=== PATIENT | female | born 1945 | race Two or more races ===

== ENCOUNTER 2017-12-22 13:44 | Inpatient (IN) | payer OTHER, MEDICAID ==
[~2017-12-22] VITALS: Ht 175.3 cm; Wt 57.0 kg
[2017-12-22 14:39] LABS: BASOPHIL % 0.3 % (0-2); PLATELET COUNT 248 x10^3mcL (130-400); RED CELL DISTRIBUTION WIDTH 13.9 % (11.5-14.5)
[2017-12-22] MEDS ORDERED: ZOCOR40 MG PO (14:54)
[2017-12-22] MEDS ORDERED: GABAPENTIN400 M1 PO (14:54)
[2017-12-22 14:56] LABS: ALKALINE PHOSPHATASE 110 U/L (46-116); ALT/SGPT 23 U/L (14-59); AST/SGOT 19 U/L (15-37); BILIRUBIN TOTAL 0.1 mg/dL (0.20-1.00); CALCIUM 8.6 mg/dL (8.5-10.1); CARBON DIOXIDE 21.8 mmol/L (21-32); CHLORIDE SERUM 97 mmol/L (98-107); CREATININE SERUM 1.2 mg/dL (0.6-1.0); SODIUM SERUM 128 mmol/L (136-145); TOTAL PROTEIN, SERUM 7.7 g/dL (6.4-8.2)
[2017-12-22] MEDS ORDERED: ALENDRONATE SOD70 M2 PO (14:56)
[2017-12-22] MEDS ORDERED: CENTANY AT2% TP (14:56)
[2017-12-22] MEDS ORDERED: LANTUS SOLOS100 U/M1 SQ (14:56)
[2017-12-22 14:59] LABS: ALBUMIN 2.2 g/dL (3.4-5.0)
[2017-12-22 15:00] LABS: GLUCOSE SERUM 541 mg/dL (74-106)
[2017-12-22 15:02] LABS: CK-MB 0.8 ng/mL (0-3.6)
[2017-12-22 15:55] VITALS: BP 136/64
[2017-12-22 16:01] LABS: CHOLESTEROL/HDL RATIO 2.6; PHOSPHOROUS 2.9 mg/dL (2.5-4.9)
[2017-12-22 16:11] LABS: FREE T4 0.99 ng/dL (0.76-1.46); T4(THYROXINE) 5.2 ug/dL (4.7-13.3)
[2017-12-22 16:30] LABS: T3 TOTAL 0.66 ng/mL
[2017-12-22 17:33] VITALS: BP 126/69
[2017-12-22 21:22] VITALS: BP 90/52
[2017-12-23 05:24] VITALS: BP 117/59
[2017-12-23 06:28] LABS: CALCIUM 8.3 mg/dL (8.5-10.1); CARBON DIOXIDE 22.7 mmol/L (21-32); CHLORIDE SERUM 108 mmol/L (98-107); CREATININE SERUM 0.7 mg/dL (0.6-1.0); POTASSIUM SERUM 4.5 mmol/L (3.5-5.1); SODIUM SERUM 140 mmol/L (136-145)
[2017-12-23 06:38] LABS: BASOPHIL % 0.4 % (0-2); PLATELET COUNT 238 x10^3mcL (130-400); RED CELL DISTRIBUTION WIDTH 13.9 % (11.5-14.5)
[2017-12-23 06:49] LABS: GLUCOSE SERUM 36 mg/dL (74-106)
[2017-12-23 08:16] LABS: microscopic required? NO
[2017-12-23 08:32] LABS: UA SPECIFIC GRAVITY 1.015 (1.005-1.035); urine erythrocyte NEGATIVE (NEGATIVE)
[2017-12-23 08:38] VITALS: BP 143/68
[2017-12-23 12:01] VITALS: BP 142/71
[2017-12-23 15:43] VITALS: BP 112/90
[2017-12-23 21:21] VITALS: BP 146/75
[2017-12-24 05:49] VITALS: BP 132/60
[2017-12-24 05:53] LABS: CALCIUM 8.6 mg/dL (8.5-10.1); CARBON DIOXIDE 21.4 mmol/L (21-32); CHLORIDE SERUM 101 mmol/L (98-107); CREATININE SERUM 0.8 mg/dL (0.6-1.0); GLUCOSE SERUM 401 mg/dL (74-106); MAGNESIUM 1.8 mg/dL (1.8-2.4); PHOSPHOROUS 3.8 mg/dL (2.5-4.9); POTASSIUM SERUM 5.2 mmol/L (3.5-5.1); SODIUM SERUM 131 mmol/L (136-145)
[2017-12-24 06:51] LABS: BASOPHIL % 0.3 % (0-2); PLATELET COUNT 268 x10^3mcL (130-400); RED CELL DISTRIBUTION WIDTH 14.1 % (11.5-14.5)
[2017-12-24 08:53] VITALS: BP 127/72
[2017-12-24 13:01] VITALS: BP 144/68
[2017-12-24 15:46] VITALS: BP 138/68
[2017-12-24 20:23] VITALS: BP 139/80
[2017-12-25 05:50] VITALS: BP 152/83
[2017-12-25 06:51] LABS: CALCIUM 8.8 mg/dL (8.5-10.1); CARBON DIOXIDE 23.1 mmol/L (21-32); CHLORIDE SERUM 102 mmol/L (98-107); CREATININE SERUM 0.7 mg/dL (0.6-1.0); GLUCOSE SERUM 434 mg/dL (74-106); SODIUM SERUM 129 mmol/L (136-145)
[2017-12-25 06:53] LABS: BASOPHIL % 0.5 % (0-2); PLATELET COUNT 281 x10^3mcL (130-400); RED CELL DISTRIBUTION WIDTH 13.7 % (11.5-14.5)
[2017-12-25 08:46] VITALS: BP 141/79
[2017-12-25 13:17] VITALS: BP 111/69
[2017-12-25 18:01] VITALS: BP 122/69
[2017-12-25 20:55] VITALS: BP 125/70
[2017-12-26 04:17] VITALS: BP 129/71
[2017-12-26 06:00] LABS: CALCIUM 8.7 mg/dL (8.5-10.1); CARBON DIOXIDE 25.9 mmol/L (21-32); CHLORIDE SERUM 110 mmol/L (98-107); CREATININE SERUM 0.7 mg/dL (0.6-1.0); GLUCOSE SERUM 216 mg/dL (74-106); SODIUM SERUM 135 mmol/L (136-145)
[2017-12-26 06:04] LABS: BASOPHIL % 0.3 % (0-2); PLATELET COUNT 306 x10^3mcL (130-400)
[2017-12-26] MEDS ORDERED: LEVOFLOXACIN500 M1 PO (09:12)
[2017-12-26] MEDS ORDERED: LAC PO (09:13)
[2017-12-26] MEDS ORDERED: CLOBETASOL PROP0.052 TOP (09:15)
[2017-12-26 09:51] VITALS: BP 139/71
[2017-12-26 13:03] VITALS: BP 139/71
[2017-12-26] MEDS ORDERED: BACTRIM DS1 TAB PO (16:25)
[2017-12-26 17:30] VITALS: BP 121/73
== END 2017-12-26 19:42 | disposition home or self-care (01) | DRG 602 ==
LOC: ED 13:44 → DU 14:34 → MU 12-26 09:16
PROVIDERS: Emergency Medicine; Family Medicine
DX: L03.012 Cellulitis of left finger (principal); E43 Unspecified severe protein-calorie malnutrition; E87.1 Hypo-osmolality and hyponatremia; Z68.1 Body mass index [BMI] 19.9 or less, adult; E11.649 Type 2 diabetes mellitus with hypoglycemia without coma; I10 Essential (primary) hypertension; E87.5 Hyperkalemia; D64.9 Anemia, unspecified; E78.5 Hyperlipidemia, unspecified; Z79.4 Long term (current) use of insulin
CPT/HCPCS: 82962; 83880; 84439; J1815; J1956; J3490; J7030; Q0092; Q0163